=== PATIENT | female | born 1980 | race Caucasian/White ===

== ENCOUNTER 2017-10-29 21:41 | Emergency (ER) | payer SELFPAY ==
[2017-10-29 22:09] VITALS: BP 135/95
[2017-10-29] MEDS ORDERED: Penicillin V Potassium 500 MG Tab PO STA (22:30)
--- NOTE | 2017-10-29 22:37 | EDM.PDOC ---
ED HPI GENERAL MEDICAL PROBLEM - General Chief Complaint: ENT Problem Stated Complaint: tooth pain Time Seen by Provider: 10/29/17 22:07 Source of Information: Reports: Patient, Old Records History Limitations: Reports: No Limitations - History of Present Illness INITIAL COMMENTS - FREE TEXT/NARRATIVE: The patient states she has had a lower left toothache for the past 2 days, but that it got worse about an hour ago. She states that she had an injury to the affected tooth about one year ago, but that it did not start hurting until about 2 days ago. No recent fever or oral drainage. She states that she last saw a dentist about 2 years ago. She acknowledges that she does not currently have an appointment with a dentist. The patient's PCP is Rebekah Posada. Right Tooth/Teeth Pain Score (Numeric/FACES): 7 - Related Data Allergies Allergy/AdvReac Type Severity Reaction Status Date / Time No Known Allergies Allergy Verified 10/29/17 22:08 Home Meds: Home Meds Levothyroxine. 1 tab PO DAILY 10/29/17 [History] Penicillin V Potassium 1 tab PO Q6HR #40 tab 10/29/17 [Rx] Past Medical History Respiratory History: Reports: Intubation, Previous Psychiatric History: Reports: Addiction (methamphetamine, alcohol), Suicide Attempt Endocrine/Metabolic History: Reports: Hypothyroidism (untreated) - Past Surgical History HEENT Surgical History: Reports: Oral Surgery (wisdom teeth extraction) GI Surgical History: Reports: Appendectomy Social & Family History - Tobacco Use Smoking Status *Q: Current Every Day Smoker Years of Tobacco use: 22 Packs/Tins Daily: 0.5 Packs/Tins Daily Comment: Down from 1 ppd - Caffeine Use Caffeine Use: Reports: Coffee, Energy Drinks, Soda, Tea - Alcohol Use Alcohol Use History: Yes Alcohol Use Frequency: Binges - Recreational Drug Use Recreational Drug Use: Yes Drug Use in Last 12 Months: Yes Recreational Drug Type: Reports: Cocaine (none since High School), Heroin (last injected 2016), LSD (Acid) (none since High School), Marijuana/Hashish (last smoked 10/29/2017), Methamphetamine (last injected 10/27/2017), PCP (Blas Dust) ( none since High School), Psilocybin (Mushrooms) (none since High School) - Living Situation & Occupation Living situation: Reports: , Other (Homeless) Occupation: Employed (House cleaning) ED ROS ENT - Review of Systems Review Of Systems: ROS reveals no pertinent complaints other than HPI. ED EXAM, ENT - Physical Exam Exam: See Below Exam Limited By: No Limitations General Appearance: Alert, WD/WN, No Apparent Distress Eye Exam: Bilateral Eye: EOMI, Normal Inspection Ears: Normal External Exam, Normal Canal, Hearing Grossly Normal, Normal TMs Nose: Normal Inspection, Normal Mucousa, No Blood Mouth/Throat: Normal Inspection, Normal Lips, Normal Oropharynx, Other (Tooth # 1 absent. Teeth #3, 4, 5 absent. Teeth #13, 14 absent. Tooth #15 with anterior sadia. Teeth #16, 17 absent. Tooth #18 absent. Tooth #19 (the tooth of concern) with posterior fracture and two fillings. Tooth #28 absent. Tooth #32 absent. No gingival swelling or pointing.) Head: Atraumatic, Normocephalic Neck: Normal Inspection, Supple, Non-Tender, Full Range of Motion. No: Lymphadenopathy (L), Lymphadenopathy (R) Course - Vital Signs Last Recorded V/S: Last Vital Signs Temp 37.0 C 10/29/17 22:06 Pulse 95 10/29/17 22:06 Resp 16 10/29/17 22:06 BP 135/95 H 10/29/17 22:06 Pulse Ox 98 10/29/17 22:06 - Orders/Labs/Meds Meds: Medications Discontinued Medications Generic Name Dose Route Start Last Admin Trade Name Freq PRN Reason Stop Dose Admin Penicillin V Potassium 1,000 mg 10/29/17 22:30 10/29/17 22:42 Veetids PO 10/29/17 22:31 1,000 mg ONETIME STA Administration - Re-Assessments/Exams Free Text/Narrative Re-Assessment/Exam: 10/29/17 22:31 The patient is complaining of lower left dentalgia for the past 2 days. She may have a posterior fracture of tooth #19. No obvious infection is seen, however, the patient is not drug seeking, and complains of considerable pain, therefore I will treat her with penicillin. She will receive a dose here, and be sent home with a second tablet that she can take early this coming morning. A prescription for a 10 day course will be sent to the [place] pharmacy, and we will provide the patient with a list of local dentists. The patient is not requesting any pain medication. Departure - Departure Time of Disposition: 22:32 Disposition: Home, Self-Care 01 Condition: Good Clinical Impression: Dentalgia - Discharge Information *PRESCRIPTION DRUG MONITORING PROGRAM REVIEWED*: Not Applicable *COPY OF PRESCRIPTION DRUG MONITORING REPORT IN PATIENT YOLANDA: Not Applicable Prescriptions: Penicillin V Potassium 1 tab PO Q6HR #40 tab Instructions: Preventive Dental Care, Adult Referrals: Rebekah Posada NP [Primary Care Provider] - Forms: ED Department Discharge Additional Instructions: You were seen in the emergency room for a lower left toothache. On examination, you may have a fracture to tooth #19. No obvious infection was seen, however, due to the amount of pain that you're having, you have been started on the antibiotic penicillin. A prescription for penicillin has been sent to the [place] [facility], [facility] [employer]. Take one tablet every 6 hours, as prescribed. Finish the entire prescription unless told otherwise by a dentist. It is important that you follow-up with a dentist as soon as possible, for definitive evaluation and treatment. A list of local dentists has been provided to you. If any other problems, please do not hesitate to return to the ER.
== END 2017-10-29 22:45 | disposition home or self-care (01) ==
LOC: JD.ED 21:41
DX: K08.89 Other specified disorders of teeth and supporting structures (principal); F17.210 Nicotine dependence, cigarettes, uncomplicated; Z79.899 Other long term (current) drug therapy
CPT/HCPCS: 99283; A9270

== ENCOUNTER 2019-08-22 00:24 | Emergency (ER) | payer SELFPAY ==
[2019-08-22] MEDS ORDERED: Ibuprofen 600 MG Tab PO ONE (00:51)
--- NOTE | 2019-08-22 00:56 | EDM.PDOC ---
ED HPI GENERAL MEDICAL PROBLEM - General Chief Complaint: Upper Extremity Injury/Pain Stated Complaint: ANKLE INJURY Time Seen by Provider: 08/22/19 00:40 Source of Information: Reports: Patient, Significant Other (Boyfriend) History Limitations: Reports: No Limitations - History of Present Illness INITIAL COMMENTS - FREE TEXT/NARRATIVE: Ms. Howell is a pleasant 38-year-old woman with a past medical history significant for binge alcoholism and addiction to methamphetamine, who now presents to the ED with a right ankle injury that she states she sustained around 21:30 tonight, when she accidentally stepped into a hole in someone's lawn. She states that she was walking on the sidewalk, but went onto the lawn to avoid a dog. She is otherwise uninjured. She is unsure if she sprained her right ankle previously; it was either her right or her left when she was much younger. The patient acknowledges that she was drinking earlier tonight. No over-the- counter or home remedies to her ankle prior to coming to the ED. An ice pack was placed upon arrival. Here in the ED, the patient is found to be hemodynamically stable, afebrile, saturating 99% on room air. Other than the ankle injury, the patient denies recent fever, chills, sore throat, ear pain, nasal or sinus congestion, cough, dyspnea, chest pain, palpitations, nausea, vomiting, constipation, diarrhea, abdominal pain, urinary symptoms, recent weight gain or weight loss, recent bloody bowel movements or black bowel movements, recent joint aches, headaches, or rashes. The patient's PCP is Rebekah Posada NP. Right Ankle Pain Score (Numeric/FACES): 6 - Related Data Allergies Allergy/AdvReac Type Severity Reaction Status Date / Time No Known Allergies Allergy Verified 08/22/19 00:49 Home Meds: Home Meds Levothyroxine. 75 mcg PO DAILY 10/29/17 [History] Past Medical History Respiratory History: Reports: Intubation, Previous Psychiatric History: Reports: Addiction (methamphetamine, alcohol), Suicide Attempt Endocrine/Metabolic History: Reports: Hypothyroidism - Past Surgical History HEENT Surgical History: Reports: Oral Surgery (wisdom teeth extraction) GI Surgical History: Reports: Appendectomy Female Surgical History: Reports: Tubal Ligation Social & Family History - Tobacco Use Smoking Status *Q: Current Every Day Smoker Years of Tobacco use: 26 Packs/Tins Daily: 1 Packs/Tins Daily Comment: Down from 1.5 ppd - Caffeine Use Caffeine Use: Reports: Coffee, Energy Drinks, Soda - Alcohol Use Alcohol Use History: Yes Alcohol Use Frequency: Binges - Recreational Drug Use Recreational Drug Use: Yes Drug Use in Last 12 Months: Yes - Living Situation & Occupation Living situation: Reports: , Other (with friends) Occupation: Employed (House cleaning) Review of Systems - Review of Systems Review Of Systems: Comprehensive ROS is negative, except as noted in HPI. ED EXAM, GENERAL - Physical Exam Exam: See Below Exam Limited By: No Limitations General Appearance: Alert, WD/WN, No Apparent Distress Extremities: Other (There is significant swelling and ecchymosis, primarily over the lateral malleolus. No other visible abnormalities, such as erythema or abrasion. There is tenderness to the anterior syndesmosis and lateral malleolus, with minimal tenderness to the posterior syndesmosis and no tenderness to the medial malleolus. Strong distal pulses; neurovascular status of the right lower extremity is intact.) Course - Vital Signs Last Recorded V/S: Last Vital Signs Temp 36.1 C 08/22/19 00:31 Pulse 86 08/22/19 00:31 Resp 20 08/22/19 00:31 BP 118/73 08/22/19 00:31 Pulse Ox 99 08/22/19 00:31 - Orders/Labs/Meds Orders: Active Orders 24 hr Category Date Time Status Ankle Min 3V Rt [CR] Stat Exams 08/22/19 00:49 Ordered DME for Discharge [COMM] Stat Oth 08/22/19 01:20 Ordered Meds: Medications Discontinued Medications Generic Name Dose Route Start Last Admin Trade Name Kaydenq PRN Reason Stop Dose Admin Ibuprofen 600 mg 08/22/19 00:51 08/22/19 01:01 Motrin PO 08/22/19 00:52 600 mg ONETIME ONE Administration - Re-Assessments/Exams Free Text/Narrative Re-Assessment/Exam: 08/22/19 00:50 As above, the patient injured her right ankle when she accidentally stepped into a hole in someone's lawn while walking tonight. I have ordered x-rays. 08/22/19 01:15 4-view radiographs of the right ankle appear to demonstrate 2 subtle opacities off the tip of the lateral malleolus, however, these are rounded and are likely old. No other acute fractures or dislocations are identified. The ankle mortise is preserved. Formal read per the Radiologist pending. 08/22/19 01:21 X-ray results discussed with the patient (her boyfriend is no longer present). The patient stated that she sprained either her left or right ankle when she was young - she does not recall which one, and it is likely that the opacities seen on the x-ray are due to an old avulsion fracture. I offered to place her into a posterior mold splint with crutches, but she prefers a stirrup brace, which I think is a better choice. I will refer her to Dr. Rodriguez, in the event that her ankle fails to improve within a couple of weeks. Departure - Departure Time of Disposition: 01:23 Disposition: Home, Self-Care 01 Condition: Good Clinical Impression: Right ankle sprain - Discharge Information *PRESCRIPTION DRUG MONITORING PROGRAM REVIEWED*: Not Applicable *COPY OF PRESCRIPTION DRUG MONITORING REPORT IN PATIENT YOLANDA: Not Applicable Referrals: Rebekah Posada NP [Primary Care Provider] - Bill Rodriguez MD [Physician] - Forms: ED Department Discharge Additional Instructions: You were seen in the emergency room after injuring your right ankle when accidentally stepping into a hole. Work-up in the ER included x-rays of your right ankle, which showed no new fractures or dislocations, however, you may have an old avulsion fracture. We recommend that you ice and elevate your right ankle as much as possible over the next 2 days, to help minimize swelling. We recommend that you take [id number] ibuprofen, 3 tablets (600 mg) up to every 8 hours, as needed for discomfort. You have been placed into a stirrup brace. Apply this each morning, and remove at bedtime. We recommend that you wear it for 7 to 10 days, after which you may start walking around without the brace. You should expect that you will still be sore at that time, however, if you are still having significant discomfort after 2 weeks, please follow-up with the Orthopedic Surgeon Dr. Bill Rodriguez for further evaluation. If any other problems, please do not hesitate to return to the ER. Sepsis Event Note - Evaluation Sepsis Screening Result: No Definite Risk - Focused Exam Vital Signs: Vital Signs Temp Pulse Resp BP Pulse Ox 08/22/19 00:31 36.1 C 86 20 118/73 99 Date Exam was Performed: 08/22/19 Time Exam was Performed: 01:27 - My Orders Last 24 Hours: My Active Orders 08/22/19 00:49 Ankle Min 3V Rt [CR] Stat 08/22/19 01:20 DME for Discharge [COMM] Stat - Assessment/Plan Last 24 Hours: My Active Orders 08/22/19 00:49 Ankle Min 3V Rt [CR] Stat 08/22/19 01:20 DME for Discharge [COMM] Stat
[2019-08-22 01:03] VITALS: BP 118/73; PULSE 86
--- NOTE | 2019-08-22 09:06 | CR ---
Right ankle: 4 views of the right ankle were obtained. Comparison: No prior ankle study is available. Soft tissue swelling is identified. Small well-corticated bony densities are seen off the lateral ankle compatible with old appearing injury. Small plantar spur is noted. No acute fracture or dislocation is seen. Impression: 1. Soft tissue swelling. 2. Other findings as described above. 3. No acute bony abnormality is identified. Diagnostic code #2 This report was dictated in MDT
== END 2019-08-22 01:43 | disposition home or self-care (01) ==
LOC: JD.ED 00:24
DX: S93.401A Sprain of unspecified ligament of right ankle, initial encounter (principal); E03.9 Hypothyroidism, unspecified; F17.210 Nicotine dependence, cigarettes, uncomplicated; Z79.899 Other long term (current) drug therapy; X50.9XXA Other and unspecified overexertion or strenuous movements or postures, initial encounter
CPT/HCPCS: 73610; 99283; A9270; 99282

== ENCOUNTER 2020-06-03 20:26 | Emergency (ER) | payer SELFPAY ==
[2020-06-03] MEDS ORDERED: LORazepam 2 MG/ML SDV IM ONE ×2 (20:40→20:52)
[2020-06-03 20:41] VITALS: BP 111/80; PULSE 120
--- NOTE | 2020-06-03 20:46 | EDM.PDOCBH ---
ED HPI GENERAL MEDICAL PROBLEM - General Chief Complaint: Behavioral/Psych Stated Complaint: [facility] Time Seen by Provider: 06/03/20 20:36 Source of Information: Reports: Patient, RN Notes Reviewed History Limitations: Reports: No Limitations - History of Present Illness INITIAL COMMENTS - FREE TEXT/NARRATIVE: Patient is a 39-year-old female presenting to the emergency department via [facility] for witnessing her significant other hang himself. EMS reports that she found him hanging and was try to hold him up for period time. Patient is anxious and tearful. She reports having 1 drink this evening but denies any drug use. Denies any medication allergies. - Related Data Allergies Allergy/AdvReac Type Severity Reaction Status Date / Time No Known Allergies Allergy Verified 06/03/20 20:42 Home Meds: Home Meds Albuterol Sulfate [Albuterol Sulfate Hfa] 2 puff INH Q4H PRN 06/03/20 [History] Levothyroxine [Synthroid] 88 mcg PO DAILY 06/03/20 [History] Past Medical History Respiratory History: Reports: Intubation, Previous Psychiatric History: Reports: Addiction (methamphetamine, alcohol), Suicide Attempt Endocrine/Metabolic History: Reports: Hypothyroidism - Past Surgical History HEENT Surgical History: Reports: Oral Surgery (wisdom teeth extraction) GI Surgical History: Reports: Appendectomy Female Surgical History: Reports: Tubal Ligation Social & Family History - Caffeine Use Caffeine Use: Reports: Coffee, Energy Drinks, Soda - Living Situation & Occupation Living situation: Reports: , Other (with friends) Occupation: Employed (House cleaning) ED ROS GENERAL - Review of Systems Review Of Systems: Comprehensive ROS is negative, except as noted in HPI. ED EXAM, BEHAVIORAL HEALTH - Physical Exam Exam: See Below General Appearance: Alert, Anxious, Other (Crying) Respiratory/Chest: No Respiratory Distress, Lungs Clear, Normal Breath Sounds, No Accessory Muscle Use, Chest Non-Tender Cardiovascular: Normal Peripheral Pulses, Regular Rate, Rhythm, No Edema, No Gallop, No JVD, No Murmur, No Rub Neurological: Alert, Normal Mood/Affect, CN II-XII Intact, Normal Cognition, Normal Gait, Normal Reflexes, No Motor/Sensory Deficits, Oriented x 3 Psychiatric: Alert, Tearful, Other (Anxious) COURSE, BEHAVIORAL HEALTH COMP - Course Vital Signs: Last Vital Signs Temp 99.6 F 06/03/20 20:40 Pulse 120 H 06/03/20 20:40 Resp 26 H 06/03/20 20:40 BP 111/80 06/03/20 20:40 Pulse Ox 100 06/03/20 20:40 Orders, Labs, Meds: Medications Discontinued Medications Generic Name Dose Route Start Last Admin Trade Name Peyton PRN Reason Stop Dose Admin Lorazepam 1 mg 06/03/20 20:40 06/03/20 20:32 Lorazepam 2 Mg/Ml Sdv IM 06/03/20 20:41 1 mg ONETIME ONE Administration Lorazepam 0.5 mg 06/03/20 20:52 06/03/20 20:56 Lorazepam 2 Mg/Ml Sdv IM 06/03/20 20:53 0.5 mg ONETIME ONE Administration Discharge vs Psych Eval/Treatment:: Patient is a 39-year-old female presenting to the emergency department via [facility] with a panic attack after finding her significant other hanging from a tree. She held him up for a period time until a neighbor cut him down. On presentation to ER, she was quite hysterical. Verbal orders were given to add for Ativan 1 mg IM. She reports having 1 alcoholic beverage this evening and denies any illicit drug use. 06/03/202049 Patient is still quite anxious. I have ordered additional Ativan 0.5 mg IM to be given now. 06/03/20 22:14 Patient is much more calm. She is ready to be discharged home. Her friend is going to come pick her up. Departure - Departure Time of Disposition: 22:15 Disposition: Home, Self-Care 01 Condition: Good Clinical Impression: Panic attack - Discharge Information *PRESCRIPTION DRUG MONITORING PROGRAM REVIEWED*: No *COPY OF PRESCRIPTION DRUG MONITORING REPORT IN PATIENT YOLANDA: No Instructions: Panic Attack Forms: ED Department Discharge Additional Instructions: You were seen in the emergency department today after suffering a panic attack. While in the ER, you received an intramuscular injection of Ativan which did help you relax. Recommend that you go home and rest. Return to ER as needed. Sepsis Event Note (ED) - Evaluation Sepsis Screening Result: No Definite Risk - Focused Exam Vital Signs: Vital Signs Temp Pulse Resp BP Pulse Ox 06/03/20 20:40 99.6 F 120 H 26 H 111/80 100
== END 2020-06-03 22:33 | disposition home or self-care (01) ==
LOC: JD.ED 20:26
DX: F41.0 Panic disorder [episodic paroxysmal anxiety] (principal); E03.9 Hypothyroidism, unspecified; Z79.899 Other long term (current) drug therapy
CPT/HCPCS: 96372; 99283; J2060

== ENCOUNTER 2024-01-19 19:42 | Emergency (ER) | payer MEDICAID ==
[2024-01-19] MEDS: cefTRIAXone 1 GM in Sodium Chloride 0.9% 100 ML IV ONE (20:48)
[2024-01-19] MEDS: Sodium Chloride 0.9% 10 ML Syringe FLUSH PRN (20:49)
[2024-01-19] MEDS: Morphine 4 MG/ML Syringe IVPUSH ONE (21:40)
[2024-01-20] VITALS: BP 131/85; PULSE 106
== END 2024-01-19 22:39 | disposition home or self-care (01) ==
LOC: JD.ED 19:42
DX: T23.162A Burn of first degree of back of left hand, initial encounter (principal); F17.210 Nicotine dependence, cigarettes, uncomplicated; E03.9 Hypothyroidism, unspecified; Z79.899 Other long term (current) drug therapy; W86.8XXA Exposure to other electric current, initial encounter
CPT/HCPCS: 16000; 96365; 96375; 99283; J0696; J2270; J3490

== ENCOUNTER 2024-09-22 22:47 | Inpatient (IN) | payer MEDICAID ==
[2024-09-23] MEDS ORDERED: Sodium Chloride 0.9% 10 ML Syringe FLUSH PRN (00:07)
[2024-09-23 00:57] LABS: BASOPHILS ABSOLUTE AUTO 0.1 K/mm3 (0.0-0.2); BASOPHILS PERCENT AUTO 0.5 % (0.0-1.0); EOSINOPHILS ABSOLUTE AUTO 0.1 K/mm3 (0.0-0.4); EOSINOPHILS PERCENT AUTO 0.8 % (0.0-6.0); IMMATURE GRAN ABSOLUTE AUTO 0.03 K/mm3 (0.00-0.05); IMMATURE GRAN PERCENT AUTO 0.3 % (0.0-0.4); LYMPHOCYTES ABSOLUTE AUTO 2.6 K/mm3 (1.0-4.8); LYMPHOCYTES PERCENT AUTO 25.9 % (24.0-44.0); MEAN PLATELET VOLUME 9.0 fl (9.4-12.3); MONOCYTES ABSOLUTE AUTO 0.8 K/mm3 (0.0-0.8); MONOCYTES PERCENT AUTO 7.7 % (0.0-8.0); NEUTROPHILS ABSOLUTE AUTO 6.5 K/mm3 (1.8-7.7); NEUTROPHILS PERCENT AUTO 64.8 % (41.0-71.0); NRBC ABSOLUTE 0.00 (0.00-0.02); NRBC PERCENT 0.0 % (0.0-0.2); PLATELET COUNT,PLT 390 K/mm3 (150-400); RED BLOOD CELL COUNT 4.72 M/mm3 (4.10-5.30); WHITE BLOOD CELL COUNT,WBC 10.10 K/mm3 (3.9-11.3)
[2024-09-23 01:21] LABS: A/G RATIO 1.0 (1-2); ALANINE AMINOTRANSFERASE,ALT 21.0 U/L (14-59); ASPARTATE AMNIOTRANSFERASE,AST 12.0 U/L (15-37); BILIRUBIN TOTAL 0.3 mg/dL (0.2-1.0); BLOOD UREA NITROGEN,BUN 16.0 mg/dL (7-18); CARBON DIOXIDE,CO2 29.0 mEq/L (21-32); CHLORIDE,CL 102.0 mEq/L (98-107); CREATININE 0.9 mg/dL (0.55-1.02); EST CRCL DRUG DOSING (CG) 66.67 mL/min; ESTIMATED GFR 81.0 mL/min (>60); GLUCOSE RANDOM 95.0 mg/dL (70-99); POTASSIUM,K 3.5 mEq/L (3.5-5.1); PROTEIN TOTAL,TP 8.0 g/dl (6.4-8.2); SODIUM,NA 141.0 mEq/L (136-145)
[2024-09-23 01:26] LABS: LACTIC ACID 1.7 mmol/L (0.4-2.0)
[2024-09-23] MEDS: LORazepam 2 MG/ML SDV IVPUSH ONE (02:21)
[2024-09-23] MEDS ORDERED: Ondansetron 4 MG/2 ML SDV IV PRN (08:32)
[2024-09-23] MEDS ORDERED: Naloxone 0.4 MG/ML SDV IVPUSH PRN (08:32)
[2024-09-23] MEDS: VANCOmycin 1.5 GM/300 ML 1.5 GM in Premix Bag 1 BAG IV ONE (18:22)
[2024-09-24 04:38] LABS: BASOPHILS ABSOLUTE AUTO 0.0 K/mm3 (0.0-0.2); BASOPHILS PERCENT AUTO 0.5 % (0.0-1.0); EOSINOPHILS ABSOLUTE AUTO 0.1 K/mm3 (0.0-0.4); EOSINOPHILS PERCENT AUTO 1.4 % (0.0-6.0); IMMATURE GRAN ABSOLUTE AUTO 0.03 K/mm3 (0.00-0.05); IMMATURE GRAN PERCENT AUTO 0.4 % (0.0-0.4); LYMPHOCYTES ABSOLUTE AUTO 3.1 K/mm3 (1.0-4.8); LYMPHOCYTES PERCENT AUTO 39.7 % (24.0-44.0); MEAN PLATELET VOLUME 9.8 fl (9.4-12.3); MONOCYTES ABSOLUTE AUTO 0.7 K/mm3 (0.0-0.8); MONOCYTES PERCENT AUTO 9.0 % (0.0-8.0); NEUTROPHILS ABSOLUTE AUTO 3.8 K/mm3 (1.8-7.7); NEUTROPHILS PERCENT AUTO 49.0 % (41.0-71.0); NRBC ABSOLUTE 0.00 (0.00-0.02); NRBC PERCENT 0.0 % (0.0-0.2); PLATELET COUNT,PLT 316 K/mm3 (150-400); RED BLOOD CELL COUNT 4.53 M/mm3 (4.10-5.30); WHITE BLOOD CELL COUNT,WBC 7.76 K/mm3 (3.9-11.3)
[2024-09-24 05:05] LABS: A/G RATIO 0.8 (1-2); ASPARTATE AMNIOTRANSFERASE,AST 16.0 U/L (15-37); BILIRUBIN TOTAL 0.2 mg/dL (0.2-1.0); BLOOD UREA NITROGEN,BUN 15.0 mg/dL (7-18); CARBON DIOXIDE,CO2 29.0 mEq/L (21-32); CHLORIDE,CL 103.0 mEq/L (98-107); CREATININE 0.8 mg/dL (0.55-1.02); EST CRCL DRUG DOSING (CG) 75.01 mL/min; ESTIMATED GFR 94.0 mL/min (>60); GLUCOSE RANDOM 104.0 mg/dL (70-99); POTASSIUM,K 4.0 mEq/L (3.5-5.1); PROTEIN TOTAL,TP 6.4 g/dl (6.4-8.2); SODIUM,NA 138.0 mEq/L (136-145)
[2024-09-24 05:19] LABS: ALANINE AMINOTRANSFERASE,ALT 17.0 U/L (14-59)
[2024-09-24] MEDS ORDERED: Ropivacaine 0.5% 5 MG/ML 30 ML SDV ONE (08:18)
[2024-09-24] MEDS ORDERED: Midazolam 1 MG/ML 2 ML SDV ONE (08:58)
[2024-09-24] MEDS ORDERED: fentaNYL 100 MCG/2 ML SDV ONE (08:58)
[2024-09-24] MEDS ORDERED: propofoL 500 MG/50 ML 50 ML ONE (08:58)
[2024-09-24] MEDS ORDERED: Ondansetron 4 MG/2 ML SDV ONE (08:58)
[2024-09-24] MEDS ORDERED: Lactated Ringers 1,000 ML ONE (09:22)
[2024-09-24 15:59] VITALS: BP 115/73; PULSE 93
== END 2024-09-24 16:03 | disposition home or self-care (01) | DRG 514 ==
LOC: JD.ED 22:47 → JD.MS 09-23 08:32
PROVIDERS: ADMIT Family Medicine; ATTEND Family Medicine
PROC: 0X6R0Z2 Detachment at Left Middle Finger, Mid, Open Approach (ICD-10-PCS; principal; 2024-09-23)
DX: M86.9 Osteomyelitis, unspecified (principal); J45.909 Unspecified asthma, uncomplicated; F17.200 Nicotine dependence, unspecified, uncomplicated; E03.9 Hypothyroidism, unspecified; Z98.890 Other specified postprocedural states; Z90.49 Acquired absence of other specified parts of digestive tract; Z98.51 Tubal ligation status; Z79.899 Other long term (current) drug therapy
CPT/HCPCS: 36415; 73140-26-F2; 73140-F2; 80053; 80202; 83605; 83735; 84703; 85025; 86140; 87040; 87641; 96361; 96374; 96375; 99284-25; 99285; A9270-GY; J0690; J2060; J2250; J2270; J2405; J2704; J2795; J3010; J3370; J3372; J7030; J7050; J7120